=== PATIENT | female | born 1985 | race African-American/Black ===

== ENCOUNTER 2018-06-03 08:32 | Emergency (ER) | payer SELFPAY | END 2018-06-03 09:26 | disposition home or self-care (01) | LOC: ERS 08:32 | DX: G56.03 Carpal tunnel syndrome, bilateral upper limbs (principal); F17.210 Nicotine dependence, cigarettes, uncomplicated | CPT/HCPCS: 99283 ==

== ENCOUNTER 2019-05-31 16:52 | Emergency (ER) | payer SELFPAY ==
--- NOTE | 2019-05-31 17:10 | RAD ---
EXAM: Chest 2 views: HISTORY: Chest pain COMPARISON: None. FINDINGS: There is a normal-sized cardiomediastinal silhouette. There is no evidence of consolidation, mass, or pleural effusion. The bones are unremarkable. IMPRESSION: No evidence of acute cardiopulmonary disease
--- NOTE | 2019-06-05 12:00 | EKG ---
Test Reason : Blood Pressure : / mmHG Vent. Rate : 077 BPM Atrial Rate : 077 BPM P-R Int : 160 ms QRS Dur : 076 ms QT Int : 370 ms P-R-T Axes : 055 040 027 degrees QTc Int : 418 ms Normal sinus rhythm Possible Left atrial enlargement Borderline ECG Confirmed by SARITA DALTON, JESSY ([id number]), sound editor CARLOS JAMIL ([id number]) on 06/05/2019 11:59:51 AM Referred By: Confirmed By:JESSY STEIN MD
== END 2019-05-31 18:45 | disposition home or self-care (01) ==
LOC: ERS 16:52
DX: R09.1 Pleurisy (principal); R06.2 Wheezing; R05 Cough; F17.210 Nicotine dependence, cigarettes, uncomplicated; Z71.6 Tobacco abuse counseling
CPT/HCPCS: 71046; 93005; 99406

== ENCOUNTER 2019-07-28 13:48 | Outpatient (CLI) | payer MEDICAID ==
--- NOTE | 2019-07-28 15:00 | MMO ---
Bilateral MAMMO Bilat Screen [facility]. CLINICAL HISTORY: Patient is 33 years old and is seen for screening. The patient has the following family history of breast cancer: paternal grandmother, malignant (generic). The patient has no personal history of cancer. The patient has a history of right Excisional Biopsy at age 23 - benign - clogged duct. VIEWS: The views performed were: bilateral craniocaudal and bilateral mediolateral oblique. This study has been interpreted with the assistance of computer-aided detection. MAMMOGRAM FINDINGS: The breasts are heterogeneously dense, which could obscure a lesion on mammography. There are no suspicious masses, suspicious calcifications, or new areas of architectural distortion. IMPRESSION: THERE IS NO MAMMOGRAPHIC EVIDENCE OF MALIGNANCY. A ROUTINE FOLLOW-UP MAMMOGRAM AT AGE 39 IS RECOMMENDED. ACR BI-RADS Category 1 - Negative MAMMOGRAPHY NOTE: 1. A negative mammogram report should not delay a biopsy if a dominant of clinically suspicious mass is present. 2. Approximately 10% to 15% of breast cancers are not detected by mammography. 3. Adenosis and dense breasts may obscure an underlying neoplasm. Reported by: NIKOLAS WINTER MD Electonically Signed: [id number]
== END 2019-07-28 13:49 | disposition home or self-care (01) ==
LOC: BICMAMMO 13:48
PROVIDERS: ATTEND Nurse Practitioner Family
DX: Z12.31 Encounter for screening mammogram for malignant neoplasm of breast (principal); N64.4 Mastodynia
CPT/HCPCS: 77067

== ENCOUNTER 2020-05-04 14:37 | Outpatient (CLI) | payer MEDICAID ==
--- NOTE | 2020-05-04 15:17 | MMO ---
Bilateral MAMMO Bilat Diag [facility]. CLINICAL HISTORY: Patient is 34 years old and is seen for diagnostic exam. The patient has the following family history of breast cancer: paternal grandmother, malignant (generic). The patient has no personal history of cancer. The patient has a history of right Excisional Biopsy at age 23 - benign - clogged duct. VIEWS: The views performed were: bilateral craniocaudal with tomosynthesis; bilateral mediolateral oblique with tomosynthesis; bilateral mediolateral with tomosynthesis; and bilateral exaggerated craniocaudal. FILMS COMPARED: The present examination has been compared to a prior imaging study performed at [facility] on 07/28/2019. This study has been interpreted with the assistance of computer-aided detection. MAMMOGRAM FINDINGS: The breasts are heterogeneously dense, which could obscure a lesion on mammography. There are stable benign appearing densities seen in both breasts. There are no suspicious masses, suspicious calcifications, or new areas of architectural distortion. IMPRESSION: THERE IS NO MAMMOGRAPHIC EVIDENCE OF MALIGNANCY. A ROUTINE FOLLOW-UP MAMMOGRAM AT AGE 39 IS RECOMMENDED. THE RESULTS OF THIS EXAM WERE SENT TO THE PATIENT. ACR BI-RADS Category 2 - Benign finding MAMMOGRAPHY NOTE: 1. A negative mammogram report should not delay a biopsy if a dominant of clinically suspicious mass is present. 2. Approximately 10% to 15% of breast cancers are not detected by mammography. 3. Adenosis and dense breasts may obscure an underlying neoplasm. Reported by: MANUELA SHUKLA MD Electonically Signed: [id number]
== END 2020-05-04 14:38 | disposition home or self-care (01) ==
LOC: BICMAMMO 14:37
PROVIDERS: ATTEND Nurse Practitioner Women's Health
DX: N64.4 Mastodynia (principal)
CPT/HCPCS: 77066; G0279

== ENCOUNTER 2023-05-22 13:04 | Emergency (ER) | payer OTHER ==
[2023-05-22] MEDS ORDERED: Boostrix 0.5 ML (Tdap) VIAL (>/=7 yrs of age) ONE ×2 (14:05→14:08)
[2023-05-22] MEDS ORDERED: Ibuprofen 200 MG TAB ONE (17:24)
== END 2023-05-22 17:26 | disposition home or self-care (01) ==
LOC: ERS 13:04
DX: S16.1XXA Strain of muscle, fascia and tendon at neck level, initial encounter (principal); S80.211A Abrasion, right knee, initial encounter; R07.9 Chest pain, unspecified; M54.6 Pain in thoracic spine; M25.562 Pain in left knee; M79.642 Pain in left hand; F17.210 Nicotine dependence, cigarettes, uncomplicated; Z23 Encounter for immunization; V43.52XA Car driver injured in collision with other type car in traffic accident, initial encounter
CPT/HCPCS: 70450; 71046; 72125; 72128; 90471; 90715

== ENCOUNTER 2023-07-11 16:29 | Emergency (ER) | payer OTHER | END 2023-07-11 19:08 | disposition home or self-care (01) | LOC: ERS 16:29 | DX: S29.001D Unspecified injury of muscle and tendon of front wall of thorax, subsequent encounter (principal); R51.9 Headache, unspecified; F17.210 Nicotine dependence, cigarettes, uncomplicated; V89.2XXD Person injured in unspecified motor-vehicle accident, traffic, subsequent encounter | CPT/HCPCS: 93005 ==